=== PATIENT | female | born 1995 | race African-American/Black ===

== ENCOUNTER 2016-09-16 21:21 | Emergency (ER) | payer SELFPAY ==
[~2016-09-16] VITALS: Ht 149.9 cm; Wt 54.4 kg
[2016-09-16] MEDS ORDERED: ONDANSETRON 4 MG TAB.RAPDIS ONE (22:32)
[2016-09-16] MEDS ORDERED: ONDANSETRON 4 MG TAB.RAPDIS SL ONE (23:00)
[2016-09-16] MEDS ORDERED: ONDANSETRON HCL/PF 4 MG/2 ML VIAL ONE (23:04)
[2016-09-16] MEDS ORDERED: ONDANSETRON HCL/PF 4 MG/2 ML VIAL IM ONE (23:30)
[2016-09-17 00:20] VITALS: BP 110/56
== END 2016-09-17 00:21 | disposition home or self-care (01) ==
LOC: ER 21:21
DX: R11.2 Nausea with vomiting, unspecified (principal)
CPT/HCPCS: 84703; 96372; 99283; A4606; J2405; Q0162; Z7610